=== PATIENT | female | born 1945 | race Caucasian/White ===

== ENCOUNTER → 2024-08-27 | Outpatient (CLI) | payer MEDICARE, SELFPAY ==
[2024-08-27 15:51] LABS: C-Reactive Protein < 0.4 mg/dL (0.0-0.9)
[2024-08-27 17:13] LABS: Sed Rate (ESR) 14 mm/hr (0-30)
[2024-08-27 19:34] LABS: RA Screen Positive (Negative)
[2024-08-27 19:35] LABS: Rheumatoid Factor Titer 1:32
[2024-09-04 06:55] LABS: ANA Screen, IFA NEGATIVE (NEGATIVE); CCP Antibody (IgG)* <16 Units
== END | disposition home or self-care (01) ==
LOC: COPL 14:56
PROVIDERS: PCP Internal Medicine; Referring Provider Nurse Practitioner Primary Care; Visit Provider Nurse Practitioner Primary Care
DX: M19.90 Unspecified osteoarthritis, unspecified site (principal); M25.511 Pain in right shoulder; M25.512 Pain in left shoulder
CPT/HCPCS: 36415; 85652; 86038; 86140; 86200; 86430; 86431

== ENCOUNTER → 2024-09-12 | Outpatient (CLI) | payer MEDICARE, SELFPAY ==
--- NOTE | 2024-09-12 11:00 | XR_ITS ---
Examination: CT chest, without intravenous contrast. Sagittal and coronal 2-D reconstructions. Exam date and time: September 12, 2024 1102 hours INDICATIONS: Coughing shortness of breath beginning several days ago CTDI:vol (mGy) 7.6 DLP: (mGycm) 254 Technique: Multiple 3.0 mm axial sections of the chest to been obtained. Bone and lung density settings are obtained. Sagittal and coronal 2-D reconstructions have been obtained. Low dose protocols were performed. One or more of the following dose reduction techniques were used; automated exposure control, adjustment of the mA and/or KV according to patient size, use of iterative reconstruction technique. Findings: Marked right thyromegaly Thoracic aortic calcification, no aneurysmal dilatation Pulmonary artery segments are not enlarged 3 mm pulmonary nodule right lower lobe No pneumonia or pulmonary edema or pleural disease Minimal apical right pleural scarring Small pericardial effusion No focal liver or splenic lesions Contracted gallbladder Kidneys partially visualized no hydronephrosis No pancreatic mass Moderate hyperexpansion IMPRESSION: COPD Prominent right thyromegaly, recommend dedicated thyroid sonography follow-up 3 mm pulmonary nodule right lower lobe, with this study as baseline recommend 6 month follow-up CT chest without contrast No pneumonia or pulmonary edema or pleural disease
== END | disposition home or self-care (01) ==
LOC: CCTX 10:37
PROVIDERS: PCP Internal Medicine; Referring Provider Internal Medicine; Visit Provider Internal Medicine
DX: J44.9 Chronic obstructive pulmonary disease, unspecified (principal); E01.0 Iodine-deficiency related diffuse (endemic) goiter; R91.1 Solitary pulmonary nodule; F17.200 Nicotine dependence, unspecified, uncomplicated
CPT/HCPCS: 71250

== ENCOUNTER → 2024-10-01 | Outpatient (CLI) | payer MEDICARE, SELFPAY ==
--- NOTE | 2024-10-01 | XR_ITS ---
Examination: Cervical spine 3 views Technique one AP lateral coned AP odontoid cervical spine 3 views Exam date and time: October 01, 2024 1304 hours Comparison December 31, 2023 INDICATIONS: Neck pain radiating to the right hand beginning 2 weeks ago, neck pain one year FINDINGS: Significant osteopenia Satisfactory alignment cervical vertebral bodies No cervical fracture Intact odontoid No significant cervical disc narrowing IMPRESSION: No cervical fracture or significant arthritic change
--- NOTE | 2024-10-01 | XR_ITS ---
Examination: Bilateral shoulders 6 views Technique: Shoulder AP internal rotation, AP external rotation, Y view each shoulder total 6 views Exam date and time :October 01, 2024 1300 hours INDICATIONS: Bilateral shoulder pain one year FINDINGS: Severe osteopenia Bilateral moderate to advanced osteoarthritis glenohumeral joints No shoulder fractures or dislocations No AC joint separations IMPRESSION: Bilateral moderate to advanced osteoarthritis glenohumeral joints
== END | disposition home or self-care (01) ==
PROVIDERS: PCP Obstetrics & Gynecology; Referring Provider Internal Medicine; Visit Provider Internal Medicine
DX: M54.2 Cervicalgia (principal); M19.012 Primary osteoarthritis, left shoulder; M19.011 Primary osteoarthritis, right shoulder
CPT/HCPCS: 72040; 73030

== ENCOUNTER → 2024-12-10 | Outpatient (CLI) | payer MEDICARE, SELFPAY ==
--- NOTE | 2024-12-10 15:30 | XR_ITS ---
Examination: Thyroid sonography complete TECHNIQUE: Grayscale sonographic images thyroid lobes Exam date and time: December 10, 2024 1539 hours INDICATIONS: Iodine deficiency diagnosis, marked right thyromegaly on CT chest September 12, 2024 FINDINGS: Right thyroid 4.1 cm Upper pole nodule 11 x 8 mm Midpole cyst 9 x 7 mm Lower pole nodule 9 x 10 mm Left thyroid 3.0 cm IMPRESSION: Right thyroid nodules as above
== END | disposition home or self-care (01) ==
LOC: CDIM 15:08
PROVIDERS: PCP Internal Medicine; Referring Provider Internal Medicine; Visit Provider Internal Medicine
DX: E04.2 Nontoxic multinodular goiter (principal)
CPT/HCPCS: 76536

== ENCOUNTER → 2025-01-20 | Outpatient (CLI) | payer MEDICARE, SELFPAY ==
--- NOTE | 2025-01-20 14:38 | XR_ITS ---
Examination: Lumbar spine 3 views Technique one AP lateral coned lateral lower lumbar spine 3 views Exam date and time: January 20, 2025 1454 hours FINDINGS: Lower back pain years more severe the last 3 weeks FINDINGS: Transpedicular lumbar fusion L2-S1 with anatomic alignment Moderate disc narrowing above the fusion site L1-L2 No lumbar fracture Thoracolumbar dextroscoliosis 15 degrees IMPRESSION: Transpedicular lumbar fusion L2-S1 with anatomic alignment Moderate degenerative disc disease L1-L2
--- NOTE | 2025-01-20 14:38 | XR_ITS ---
Examination:Left hip AP, lateral, AP pelvis 3 views Technique: Hip AP lateral, AP pelvis, 3 views Exam date and time:January 20, 2025 1545 hours INDICATIONS: Left hip pain beginning several years ago worse the last 3 weeks FINDINGS: Bilateral hip hemiarthroplasties Satisfactory alignment No loosening of the prosthetic components Bones of the pelvis intact IMPRESSION: Bilateral hip hemiarthroplasties with satisfactory alignment.
== END | disposition home or self-care (01) ==
LOC: CDIM 13:51
PROVIDERS: PCP Internal Medicine
DX: M25.552 Pain in left hip (principal); M51.360 Other intervertebral disc degeneration, lumbar region with discogenic back pain only
CPT/HCPCS: 72100; 73502

== ENCOUNTER 2025-02-28 18:42 | Emergency (ER) | payer MEDICARE, SELFPAY ==
[2025-02-28 19:11] VITALS: BP 140/77; PULSE 106; RESP 20; TEMP 36.9; O2SAT 96; BMI 22.6
--- NOTE | 2025-02-28 19:29 | XR_ITS ---
Examination: CT lumbar spine, without contrast. 2-D sagittal reconstructions. 2-D coronal reconstructions. 3-D reconstructions. Date and time of exam:February 28, 2025 1949 hours INDICATIONS: Patient fell today with injury to lower back, lower back pain CTDI: vol (mGy):20 DLP: (mGycm):552 Technique: Multiple 1.25 mm axial sections of the lumbar spine without intravenous contrast have been obtained. 2-D sagittal and coronal reconstructions have been obtained. 3-D reconstructions have been obtained. Low dose protocols were performed. One or more of the following dose reduction techniques were used; automated exposure control, adjustment of the mA and/or KV according to patient size, use of iterative reconstruction technique. Findings: Severe osteopenia Extensive transpedicular lumbar fusion extending from L2 to the sacrum with satisfactory alignment No acute lumbar vertebral body fracture The transpedicular screws generate artifacts which degrade the images Laminectomies at the lower 3 lumbar levels IMPRESSION: No acute lumbar fracture
--- NOTE | 2025-02-28 19:29 | XR_ITS ---
Examination: Knee, left , 3 views Technique: Knee AP, lateral, oblique 3 views Date and time of exam: February 28, 2025 2121 hours INDICATIONS: Patient fell 3 weeks ago with injury to the knee, knee pain. FINDINGS: No fracture or dislocation. No foreign body IMPRESSION: No fracture or dislocation
--- NOTE | 2025-02-28 19:29 | XR_ITS ---
Examination: Bilateral hips, AP pelvis, 5 views Technique: AP, lateral views both hips, AP pelvis, 5 views Exam date and time: February hours INDICATIONS: Patient fell 3 weeks ago with injury to both hips, bilateral rib pain. FINDINGS: Bilateral hip hemiarthroplasties. Satisfactory alignment No fractures. No loosening of the prosthetic components Bones of the pelvis and back IMPRESSION: No acute hip or pelvic fracture
--- NOTE | 2025-02-28 19:31 | XR_ITS ---
EXAMINATION: Ankle, left 3 views . Technique: Ankle AP, oblique, lateral 3 views Date and time of exam: February 28, 2025 2131 hours INDICATIONS: Patient fell 3 weeks ago with injury to the ankle, ankle pain. FINDINGS: Moderate osteopenia. No fracture or dislocation IMPRESSION: No fracture or dislocation
--- NOTE | 2025-02-28 19:31 | XR_ITS ---
Examination: Tibia-Fibula, left , 2 views Technique: Tibia-fibula AP lateral 2 views Date and time of exam: February 28, 2025, 1935 hours INDICATIONS: Patient fell 3 weeks ago with injury to lower leg, lower leg pain FINDINGS: No fracture or dislocation IMPRESSION: No fracture or dislocation
--- NOTE | 2025-02-28 19:31 | XR_ITS ---
Examination: Foot, left, 3 views Technique: AP, oblique, lateral views foot, 3 views Date and time of exam: February 28, 2025 2121 hours INDICATIONS: Patient fell 3 weeks ago with injury to the foot, foot pain. FINDINGS: Prominent osteopenia No acute fracture No dislocation IMPRESSION: No acute fracture
--- NOTE | 2025-02-28 19:34 | EDNOTE_ITS ---
Lower Extremity Injury RME/HPI General Chief Complaint: Hip Injury/Pain Stated Complaint: LEFT HIP PAIN Time Seen by Provider: 02/28/25 19:10 Arrival date/time: 02/28/25 18:42 This is a 79-year-old female that comes into the emergency room with complaints of left hip pain. Patient states that the couple weeks ago she had her sheets rolled in her legs and fell to the ground. Patient states she fell onto her left hip. Patient states since the fall she has been hurting to that left side left leg left knee left lower leg and ankle. Patient also complains of pain to her left buttock area. Patient reports that the pain goes down her leg. Patient reports back surgeries and a hip replacement in the past. Related Data Previous Rx's ?Medication ?Instructions ?Recorded amoxicillin 875 mg-potassium 1 tab PO BID #14 tabs 08/17 clavulanate 125 mg tablet hydrocodone 5 mg-acetaminophen 325 1 tab PO Q6H PRN pa in #20 tabs 02/10/24 mg tablet hydrocodone 5 mg-acetaminophen 325 1 tab PO Q6H PRN pa in #20 tabs 02/10/24 mg tablet acetaminophen 300 mg-codeine 30 mg 2 tab PO Q8H PRN pa in #20 tabs 03/11/25 tablet lidocaine 5 % topical patch 2 patch topical QDAY PRN p ain #30 03/11/25 (Lidoderm) ea Allergies Allergy/AdvReac Type Severity Reaction Status Date / Time No Known Allergies Allergy Verified 03/11/25 14:12 Review of Systems Review of Systems Systems Reviewed: All systems reviewed, normal except as documented Past Medical History Past Medical History CARDIAC: Negative Congestive Heart Failure RESPIRATORY: Negative Chronic Obstructive Pulmonary Disease (COPD) GENITOURINARY: Negative Renal Disease ENDOCRINE: Negative Diabetes Mellitus Type 1 or Diabetes Mellitus Type 2 Social History SMOKING STATUS: Current every day smoker SUBSTANCE USE: does not use ED Exam Narrative Physical exam: VITAL SIGNS: Reviewed. GENERAL APPEARANCE: Alert and interactive, follows commands, no acute distress HEAD AND FACE: Non-traumatic. ENT: PERRL, conjuctiva pink and clear, eyelid no trauma, Mucous membrane moist. NECK: Supple, nontender, no nuchal rigidity. CHEST: No tenderness, no crepitus, no paradoxical movement, no retractions. LUNGS: breathing even and unlabored HEART: Regular rate, cap refill less than 2 seconds ABDOMEN: Soft, nondistended, no guarding, nontender NEUROLOGICAL: Gross motor function intact sensory function intact, Appropriate for age. MUSCULOSKELETAL: low back nontender, full range of motion. EXTREMITIES: No redness no swelling no skin breakdown on bilateral foot and leg. Distal neurovascular status intact bilateral foot SKIN: Color pink, dry, no rashs. Course Quality Measures none Orders Category Date Time Status CT lumbar spine wo con Stat Exams 02/28/25 19:29 Completed XR ankle comp LT min 3V Stat Exams 02/28/25 19:31 Completed XR femur LT 2V Stat Exams 02/28/25 20:34 Completed XR foot comp LT min 3V Stat Exams 02/28/25 19:31 Completed XR hip BI w pelvis 3-4V Stat Exams 02/28/25 19:29 Completed XR knee LT 3V Stat Exams 02/28/25 19:29 Completed XR tibia fibula LT 2V Stat Exams 02/28/25 19:31 Completed Acetaminophen Tab [Tylenol ES Tab] Med 02/28/25 21:42 Discontinued 1,000 mg PO X1 ONE Ibuprofen Tab [Motrin Tab] Med 02/28/25 21:42 Discontinued 800 mg PO X1 ONE Vital Signs Vital signs: Vital Signs Temperature 98.4 F 02/28/25 19:11 Pulse Rate 106 H 02/28/25 19:11 Respiratory Rate 20 02/28/25 19:11 Blood Pressure 140/77 H 02/28/25 19:11 Pulse Oximetry (%) 96 02/28/25 19:11 Oxygen Delivery Method Room Air 02/28/25 19:11 Extremity Injury, Lower MDM Narrative MDM Narrative:: Hip xray: FINDINGS: Bilateral hip hemiarthroplasties. Satisfactory alignment No fractures. No loosening of the prosthetic components Bones of the pelvis and back IMPRESSION: No acute hip or pelvic fracture knee: FINDINGS: No fracture or dislocation. No foreign body IMPRESSION: No fracture or dislocation lumbar ct scan: Findings: Severe osteopenia Extensive transpedicular lumbar fusion extending from L2 to the sacrum with satisfactory alignment No acute lumbar vertebral body fracture The transpedicular screws generate artifacts which degrade the images Laminectomies at the lower 3 lumbar levels IMPRESSION: No acute lumbar fracture ankle: FINDINGS: Moderate osteopenia. No fracture or dislocation IMPRESSION: No fracture or dislocation foot FINDINGS: Prominent osteopenia No acute fracture No dislocation IMPRESSION: No acute fracture tib/fib: FINDINGS: No fracture or dislocation IMPRESSION: No fracture or dislocation Patient given tylenol and ibuprofen for pain. Pt feels better. Patient told to follow up with primary provider in 1-2 days Today patient had xray and Ct scan. There was no acute fracture seen. Exam appeared unremarkable. I explained to patient at length that if there was continued pain to this area or worsened to come back to ED or see primary provider for more xrays or further testing such as CT scan or MRI. X rays are not perfect and sometimes serial films needed. Patient verbalized understanding. Patient states they will follow up with primary provider in 1-2 days or come back to ED if symptoms change or worsen. Patient data External records reviewed:: [facility] previous records Clinical information provided by:: patient Social determinants that could affect healthcare access:: none Patient has the following chronic illnesses:: See HPI How is presenting disease/condition affected by chronic disease/condition?: uneffected by Evaluation data The following diagnostics were reviewed and interpreted by me:: radiology exam(s) Lab and/or radiology exams considered but not ordered:: Same none Interpretation Summary: See note Medications / Prescriptions Medications or Prescriptions considered but not ordered:: None Medication administrations:: Medication Administration History Discontinued Medications Acetaminophen (Acetaminophen 500 Mg Tablet) 1,000 mg PO X1 ONE Stop: 02/28/25 21:43 Last Admin: 02/28/25 21:51 Dose: 1,000 mg Documented By: DT Ibuprofen (Ibuprofen Tab 400 Mg Tablet) 800 mg PO X1 ONE Stop: 02/28/25 21:43 Last Admin: 02/28/25 21:51 Dose: 800 mg Documented By: DT See [facility] [place] Consultations Consultation(s) initiated? (list below): No Diagnosis Extremity Injury, Lower Differential Diagnosis: other (Knee fracture knee contusion, back fracture chronic back pain) Most likely diagnosis given after review of the tests above:: Musculoskeletal pain Admission Indicated Admission indicated?: not indicated Admission Request Was there a request for admission?: No Disposition Plan Disposition Plan: Discharge Discharge Attestation Discharge Attestation: The patient and all family members were given an opportunity to ask questions and understood the discharge instructions. Discharge instructions specifically effects, indications for sooner follow up or return to the emergency department, and the expected course of current diagnosis. Patient condition: Stable Discharge Plan Plan Patient Disposition: HOME (Self Care) Patient condition on transfer: Stable Prescriptions/Referrals Prescriptions/Med Rec: No Action amoxicillin-pot clavulanate 875-125 mg tablet 1 tab PO BID Qty: 14 0RF hydrocodone-acetaminophen 5-325 mg tablet 1 tab PO Q6H MDD 4 PRN (Reason: pain) Qty: 20 0RF hydrocodone-acetaminophen 5-325 mg tablet 1 tab PO Q6H MDD 4 PRN (Reason: pain) Qty: 20 0RF acetaminophen-codeine 300-30 mg tablet 2 tab PO Q8H MDD 6 PRN (Reason: pain) Qty: 20 0RF lidocaine [Lidoderm] 5 % adhesive patch,medicated 2 patch topical QDAY PRN (Reason: pain) Qty: 30 0RF Rx Instructions: leave on most painful area for up to 12 hrs Referrals: Gonzales New MD [Primary Care Provider] - In 1 week Problem List Clinical Impression: Fall, Acute leg pain, Back pain Patient/Caregiver Discharge Instructions Discharge Activity: activity as tolerated Education Materials: ED Back Pain (Acute or Chronic), ED RICE Additional Instructions: radiology studies show: Hip xray: FINDINGS: Bilateral hip hemiarthroplasties. Satisfactory alignment No fractures. No loosening of the prosthetic components Bones of the pelvis and back IMPRESSION: No acute hip or pelvic fracture knee: FINDINGS: No fracture or dislocation. No foreign body IMPRESSION: No fracture or dislocation lumbar ct scan: Findings: Severe osteopenia Extensive transpedicular lumbar fusion extending from L2 to the sacrum with satisfactory alignment No acute lumbar vertebral body fracture The transpedicular screws generate artifacts which degrade the images Laminectomies at the lower 3 lumbar levels IMPRESSION: No acute lumbar fracture ankle: FINDINGS: Moderate osteopenia. No fracture or dislocation IMPRESSION: No fracture or dislocation foot FINDINGS: Prominent osteopenia No acute fracture No dislocation IMPRESSION: No acute fracture tib/fib: FINDINGS: No fracture or dislocation IMPRESSION: No fracture or dislocation Follow up with primary provider in 1-2 days. Come back to ED if symptoms change or worsen Print Language: Yemeni Stand Alone Forms: Alejandra Award Info., Patient Portal Info Letter PA/ACCOUNTING SPECIALIST Supervising Physician PA/ACCOUNTING SPECIALIST Supervising Physician: da
--- NOTE | 2025-02-28 20:34 | XR_ITS ---
Examination: Left femur 2 views TECHNIQUE: AP lateral left femur 2 views Date and time: February 28, 2025 10:00 PM INDICATIONS: Patient fell 3 weeks ago with injury to the femur, left femur pain FINDINGS: Incomplete study Visualize shaft appears intact IMPRESSION: Visualized femoral shaft appears intact
[2025-02-28 21:08] VITALS: BP 126/68; PULSE 80; RESP 18; TEMP 36.8; O2SAT 95
[2025-02-28 21:51] VITALS: TEMP 37
[2025-02-28] MEDS: IBUPROFEN TAB 400 MG TABLET 800 MG PO (21:51)
[2025-02-28] MEDS: ACETAMINOPHEN 500 MG TABLET 1000 MG PO (21:51)
== END 2025-02-28 21:57 | disposition home or self-care (01) ==
PROVIDERS: Emergency Provider Emergency Medicine; PCP Internal Medicine
DX: S99.912A Unspecified injury of left ankle, initial encounter (principal); S39.92XA Unspecified injury of lower back, initial encounter; S99.922A Unspecified injury of left foot, initial encounter; W19.XXXA Unspecified fall, initial encounter; S79.912A Unspecified injury of left hip, initial encounter; S79.911A Unspecified injury of right hip, initial encounter; S89.92XA Unspecified injury of left lower leg, initial encounter
CPT/HCPCS: 72131; 73522; 73552; 73562; 73590; 73610; 73630; 99284; A9270

== ENCOUNTER 2025-03-11 14:09 | Emergency (ER) | payer MEDICARE, SELFPAY ==
[2025-03-11 14:10] VITALS: BMI 22.9
--- NOTE | 2025-03-11 14:18 | XR_ITS ---
Examination: CT abdomen and pelvis without contrast. Coronal 3-D reconstructions. Sagittal 2-D reconstructions. Date and time of exam: March 11, 2025 1546 hours INDICATIONS: Left-sided flank pain and nausea today CTDI: vol (mGy): 9.3 DLP: (mGycm): 455 Technique: Axial images of the abdomen have been obtained, 3 mm slice thickness Intravenous contrast material has not been administered. Low dose protocols were performed. One or more of the following dose reduction techniques were used; automated exposure control, adjustment of the mA and/or KV according to patient size, use of iterative reconstruction technique. Findings: No focal liver or splenic lesions Gallstones No pancreatic or adrenal mass No renal or ureteral calculi, no hydronephrosis Aorta normal size No pericecal inflammatory change Abundant stool in the colon Urinary bladder intact Detail in the pelvis is reduced secondary to the hemiarthroplasties right and left hip IMPRESSION: No renal or ureteral calculi, no hydronephrosis No bladder mass or bladder calculi
--- NOTE | 2025-03-11 14:18 | XR_ITS ---
Examination: CT lumbar spine, without contrast. 2-D sagittal reconstructions. 2-D coronal reconstructions. 3-D reconstructions. Date and time of exam:March 11, 2025 1546 hours INDICATIONS: Low back pain radiating down the left leg this week COMPARISON: February 28, 2025 CTDI: vol (mGy):20.6 DLP: (mGycm):530 Technique: Multiple 1.25 mm axial sections of the lumbar spine without intravenous contrast have been obtained. 2-D sagittal and coronal reconstructions have been obtained. 3-D reconstructions have been obtained. Low dose protocols were performed. One or more of the following dose reduction techniques were used; automated exposure control, adjustment of the mA and/or KV according to patient size, use of iterative reconstruction technique. Findings: Severe osteopenia Transpedicular lumbar fusion L2-S1 Satisfactory alignment No acute lumbar fracture Laminectomy lower 3 lumbar levels Axial images demonstrate no focal lumbar disc protrusion IMPRESSION: No acute lumbar fracture. As clinically warranted, ejected CT myelography follow up would best assess for acquired soft tissue spinal stenosis
[2025-03-11 14:20] VITALS: BP 125/78; PULSE 113; RESP 18; TEMP 36.9; O2SAT 97
[2025-03-11 14:39] LABS: Collection Type, Urine Clean Catch
[2025-03-11 14:40] LABS: Basophils # (Auto) 0.1 Thou/mm3 (0.0-0.2); Basophils % (Auto) 1 % (0-2.5); Eosinophils # (Auto) 0.2 Thou/mm3 (0.0-0.5); Eosinophils % (Auto) 3 % (0-10); Hematocrit 34.5 % (36.0-46.0); Hemoglobin 11.6 g/dL (12.0-16.0); Immature Granulocytes % (Auto) 0 % (0-0); Immature Granulocytes Auto 0.01 Thou/mm3 (0.00-0.00); Lymphocytes # (Auto) 1.9 Thou/mm3 (1.0-4.8); Lymphocytes % (Auto) 29 % (10-50); Mean Corpuscular HGB Conc 33.6 g/dl (31.0-37.0); Mean Corpuscular Hemoglobin 29.5 pg (25.0-35.0); Mean Corpuscular Volume 88 fL (80-100); Monocytes # (Auto) 0.5 Thou/mm3 (0.0-0.8); Monocytes % (Auto) 7 % (0-12); Neutrophils % (Auto) 60 % (37-80); Nucleated Red Blood Cell % 0 /100 WBC (0); Platelet Count 216 Thou/mm3 (140-440); RDW Standard Deviation 46.5 fL (36.4-46.3); Red Blood Count 3.93 Miln/mm3 (4.00-5.20); White Blood Count 6.6 Thou/mm3 (3.6-11.0)
[2025-03-11 14:48] LABS: Bilirubin,Urine Negative (Negative); Blood,Urine Negative (Negative); Clarity,Urine Clear (Clear/Hazy); Color,Urine Colorless (Lt Yel-Yel); Culture Indicated,Urine Not Indicated; Glucose, Urine Negative (Negative); Ketones,Urine Negative (Negative); Leukocyte Esterase,Urine Positive (Negative); Nitrite,Urine Negative (Negative); PH,Urine 5.5 (5.0-7.0); Protein,Urine Negative (Neg - Trace); RBC,Urine 1 /hpf (0-3); Specific Gravity,Urine 1.009 (1.001-1.035); Squamous Epithelial Cell,Urine < 1 /hpf (0-5); Urobilinogen,Urine Negative mg/dL (0.0-1.0); WBC,Urine 2 /hpf (0-5)
[2025-03-11 15:09] LABS: Alanine Aminotransferase 12 U/L (10-49); Albumin, Serum 4.3 gm/dL (3.4-4.8); Albumin/Globulin Ratio 2.5 (1.2-2.2); Alkaline Phosphatase 53 U/L (46-116); Anion Gap 8 (7-16); Aspartate Amino Transferase 16 U/L (0-34); BUN/Creatinine Ratio 24 Ratio (12-20); Bilirubin,Direct < 0.1 mg/dL (0.0-0.3); Bilirubin,Total 0.3 mg/dL (0.3-1.2); Blood Urea Nitrogen 19 mg/dL (9-23); Carbon Dioxide 23.5 mMol/L (20.0-31.0); Chloride 108 mMol/L (98-107); Creatinine (Component) 0.8 mg/dL (0.6-1.3); Estimated Creatinine Clearance 51.3 mL/min (>60); Globulin 1.7 gm/dL (2.3-3.5); Glucose 125 mg/dL (74-106); Magnesium 2.1 mg/dL (1.6-2.6); Osmolality,Calculated 280 (275-295); Potassium 3.9 mMol/L (3.4-5.1); Sodium 139 mMol/L (136-145); eGFR > 60 See Note
--- NOTE | 2025-03-11 15:19 | EDNOTE_ITS ---
ED Abdominal Pain RME/HPI General Chief Complaint: Abdominal Pain Stated complaint: LEFT LOWER ABD PAIN /BULGE NOTED X2D Time seen by provider: 03/11/25 14:32 Arrival date/time: 03/11/25 14:09 RME / HPI RME / HPI narrative: This section includes all my notes and documentations, including HPI, PE, and ED course. Gordon Pagan MD HPI: 79 year old female here with a few days of pain in the left flank area. Has difficulty localizing the pain further. No nausea or vomiting. No fever. No urinary symptoms. No other complaints. ROS: All negative except as documented in HPI. Physical Exam: General:? Alert and oriented.? No acute distress when remaining still. Eyes:? Conjunctivae and lids clear.?? ENT:? No nasal congestion.? Neck:? Supple.?? Heart:? RRR.? Lungs:? No respiratory distress.? Good air movement.? No rhonchi, wheezing, rales.?? Abdomen:? Soft and nontender.? Normal bowel sounds.? No distension.? No rebound or guarding.?? Back:? No CVA tenderness.?? Skin:? Warm and dry.?? Neuro:? Alert and oriented X 3. I reviewed all diagnostic test results: My review of the lumbar spine CT report is: No acute lumbar fracture. My review of the CT abdomen/pelvis report is NAD. Blood tests and urine tests?are unremarkable. At this point, diagnoses include: Musculoskeletal pain Recommended supportive care. Based on my best medical judgment, made decision no further evaluation or treatment indicated at this time.? Patient understands and agrees to the discharge instructions customized and printed, see below. Discharge Instructions from Dr. Pagan printed for you: 1. After extensive evaluation, there is no internal cause of your pain. 2. Your pain is musculoskeletal, meaning the pain is originating from the outside and not internally. 3. Activity as tolerated. 4. Apply ice or heat if helpful. 5. Ibuprofen 200 mg every 6-8 hours today and tomorrow to decrease inflammation then as needed. 6. Lidocaine patches and Tylenol with codeine as needed. 7. See a private doctor on 03/13/2025 for recheck and further care, including second opinion. Ask to review all test results and official radiology reports, to make sure you receive all necessary follow-ups and monitoring. 8. Seek immediate medical care with worsening or with any concerns. Gordon Pagan MD Related Data Previous Rx's ?Medication ?Instructions ?Recorded amoxicillin 875 mg-potassium 1 tab PO BID #14 tabs 08/17 clavulanate 125 mg tablet hydrocodone 5 mg-acetaminophen 325 1 tab PO Q6H PRN pa in #20 tabs 02/10/24 mg tablet hydrocodone 5 mg-acetaminophen 325 1 tab PO Q6H PRN pa in #20 tabs 02/10/24 mg tablet acetaminophen 300 mg-codeine 30 mg 2 tab PO Q8H PRN pa in #20 tabs 03/11/25 tablet lidocaine 5 % topical patch 2 patch topical QDAY PRN p ain #30 03/11/25 (Lidoderm) ea Allergies Allergy/AdvReac Type Severity Reaction Status Date / Time No Known Allergies Allergy Verified 03/11/25 14:12 Review of Systems Review of Systems Systems Reviewed: All systems reviewed, normal except as documented Past Medical History Past Medical History CARDIAC: Negative Congestive Heart Failure RESPIRATORY: Negative Chronic Obstructive Pulmonary Disease (COPD) GENITOURINARY: Negative Renal Disease ENDOCRINE: Negative Diabetes Mellitus Type 1 or Diabetes Mellitus Type 2 Social History SMOKING STATUS: Current every day smoker SUBSTANCE USE: does not use ED Exam Narrative Physical exam: As noted in HPI Course Quality Measures none Orders Category Date Time Status CT abdomen pelvis wo con Stat Exams 03/11/25 14:[address] lumbar spine wo con Stat Exams 03/11/25 14:18 Completed Bilirubin,Direct Stat Lab 03/11/25 14:35 Completed CBC Stat Lab 03/11/25 14:35 Completed CMP [Comprehensive Metabolic Panel] Stat Lab 03/11/25 14:35 Completed Magnesium Stat Lab 03/11/25 14:35 Completed UA, C/S IF [Urinalysis, C/S if Indicated] Stat Lab 03/11/25 14:36 Completed Vital Signs Vital signs: Vital Signs Temperature 98.5 F 03/11/25 14:20 Pulse Rate 113 H 03/11/25 14:20 Respiratory Rate 18 03/11/25 14:20 Blood Pressure 125/78 03/11/25 14:20 Pulse Oximetry (%) 97 03/11/25 14:20 Oxygen Delivery Method Room Air 03/11/25 14:20 Abdominal Pain MDM Patient data External records reviewed:: [facility] previous records (I reviewed ED visit 02/28/2025 ) Clinical information provided by:: patient Social determinants that could affect healthcare access:: none Patient has the following chronic illnesses:: none How is presenting disease/condition affected by chronic disease/condition?: no chronic disease Evaluation data The following diagnostics were reviewed and interpreted by me:: lab results and radiology exam(s) Lab and/or radiology exams considered but not ordered:: None Interpretation Summary: I reviewed all diagnostic test results: My review of the lumbar spine CT report is: No acute lumbar fracture. My review of the CT abdomen/pelvis report is NAD. Blood tests and urine tests?are unremarkable. Medications / Prescriptions Medications or Prescriptions considered but not ordered:: None Medication administrations:: None Consultations Consultation(s) initiated? (list below): No Diagnosis Differential diagnosis abdominal pain: abdominal pain, acute appendicitis, calculus of kidney, constipation, diverticulitis, endometriosis, gastroenteritis, small bowel obstruction and other (musculoskeletal pain ) Most likely diagnosis given after review of the tests above:: Musculoskeletal pain Admission Indicated Admission indicated?: not indicated Explain why admission is indicated or not indicated:: With no serious condition, there was no indication for admission. Admission Request Was there a request for admission?: No Disposition Plan Disposition Plan: Discharge Discharge Attestation Discharge Attestation: The patient and all family members were given an opportunity to ask questions and understood the discharge instructions. Discharge instructions specifically effects, indications for sooner follow up or return to the emergency department, and the expected course of current diagnosis. Patient condition: Stable Discharge Plan Plan Patient Disposition: HOME (Self Care) Prescriptions/Referrals Prescriptions/Med Rec: New acetaminophen-codeine 300-30 mg tablet 2 tab PO Q8H MDD 6 PRN (Reason: pain) Qty: 20 0RF lidocaine [Lidoderm] 5 % adhesive patch,medicated 2 patch topical QDAY PRN (Reason: pain) Qty: 30 0RF Rx Instructions: leave on most painful area for up to 12 hrs No Action amoxicillin-pot clavulanate 875-125 mg tablet 1 tab PO BID Qty: 14 0RF hydrocodone-acetaminophen 5-325 mg tablet 1 tab PO Q6H MDD 4 PRN (Reason: pain) Qty: 20 0RF hydrocodone-acetaminophen 5-325 mg tablet 1 tab PO Q6H MDD 4 PRN (Reason: pain) Qty: 20 0RF Referrals: Gonzales New MD [Primary Care Provider] - In 1 week Problem List Clinical Impression: Musculoskeletal pain Patient/Caregiver Discharge Instructions Discharge Activity: activity as tolerated Education Materials: ED Back Pain (Acute or Chronic) Additional Instructions: Discharge Instructions from Dr. Pagan printed for you: 1. After extensive evaluation, there is no internal cause of your pain. 2. Your pain is musculoskeletal, meaning the pain is originating from the outside and not internally. 3. Activity as tolerated. 4. Apply ice or heat if helpful. 5. Ibuprofen 200 mg every 6-8 hours today and tomorrow to decrease inflammation then as needed. 6. Lidocaine patches and Tylenol with codeine as needed. 7. See a private doctor on 03/13/2025 for recheck and further care, including second opinion. Ask to review all test results and official radiology reports, to make sure you receive all necessary follow-ups and monitoring. 8. Seek immediate medical care with worsening or with any concerns. Print Language: German Stand Alone Forms: Alejandra Award Info., Patient Portal Info Letter
--- NOTE | 2025-03-11 17:08 | PRELIM_ITS ---
CT scan of the abdomen and pelvis without intravenous contrast (axial sections with sagittal and coronal reformats) March 11, 2025 1546 hours Clinical History: L flank pain Comparison:No prior study is available for comparison. Findings: The lung bases are clear. There is a calcified gallstone.The liver, pancreas, spleen, kidneys and adrenals are unremarkable on this noncontrast study. No evidence of bowel obstruction. Abundant amount of fecal material is present in the colon. The appendix is not definitively visualized; however, there is no evidence of inflammatory process in the right lower quadrant to suggest appendicitis.There is no mesenteric or retroperitoneal adenopathy. The urinary bladder is unremarkable. There is no free fluid or free air. Bilateral hip implants are present causing streak artifact and limiting evaluation of the pelvic structures. Spinal fusion is seen. There is severe osteopenia. Impression: No renal/ureteric calculi or ureteric obstruction. Cholelithiasis. Marked constipation. Other findings as described above. Report Electronically Signed By: Juni Jackson 03/11/2025 5:07:39 PM [EST]
--- NOTE | 2025-03-11 17:27 | PRELIM_ITS ---
CT scan of the lumbar spine without intravenous contrast (axial sections with sagittal and coronal reformats) March 11, 2025 1546 hours Clinical History: LBP radiating into left leg Comparison:No prior study is available for comparison. Findings: Limitation:- The evaluation is limited by streak artifact. Alignment:- There is spinal fusion at L2 to S1 levels with fusion rods and pedicle screws. There is L3,L4 and L5 laminectomy and disc spacer implant at L2- L3. Vertebral Bodies:- There is diffuse osteopenia. There is chronic fracture of L3 vertebral body. Intervertebral Discs:- Degenerative changes are noted in the form of multilevel marginal osteophytes, decreased disc spaces and facet arthropathy. Soft Tissues:- There are paravertebral soft tissue swelling and post operative changes. Additional Findings:- None. Impression: The evaluation is limited by streak artifact. No evidence of acute fracture, subluxation or significant soft tissue injury. Spinal fusion at L2 to S1 levels with postoperative changes. Degenerative changes are identified in the spine. Diffuse osteopenia. Other findings as described above. Report Electronically Signed By: Juni Jackson 03/11/2025 5:26:35 PM [EST]
== END 2025-03-11 18:23 | disposition home or self-care (01) ==
PROVIDERS: Emergency Provider Emergency Medicine; PCP Internal Medicine
DX: M79.18 Myalgia, other site (principal); R10.32 Left lower quadrant pain; M54.50 Low back pain, unspecified
CPT/HCPCS: 36415; 72131; 74176; 80053; 81001; 82248; 83735; 85025; 99284

== ENCOUNTER 2025-07-04 13:30 | Emergency (ER) | payer MEDICARE, SELFPAY ==
[2025-07-04 14:04] VITALS: BP 148/83; PULSE 93; RESP 18; TEMP 37.1; O2SAT 97
--- NOTE | 2025-07-04 14:21 | PD.EDABDPN ---
ED Abdominal Pain RME/HPI General Chief Complaint: Abdominal Pain Stated complaint: Left lower abdominal pain X 1 week Time seen by provider: 07/04/25 14:13 Arrival date/time: 07/04/25 13:30 Limitations: no limitations RME / HPI RME / HPI narrative: 80-year-old female with 4 months of left lower quadrant pain. States however worse over the last 1 week. States was here a few months ago and was scanned and was told nothing. However she has pain with bending and the soreness to the left lower quadrant. No diarrhea no vomiting no rectal bleeding. History of total hysterectomy. Does not know when her last colonoscopy was. Related Data Previous Rx's ?Medication ?Instructions ?Recorded amoxicillin 875 mg-potassium 1 tab PO BID #14 tabs 02/02/24 clavulanate 125 mg tablet hydrocodone 5 mg-acetaminophen 325 1 tab PO Q6H PRN pain #20 tabs 02/10/24 mg tablet hydrocodone 5 mg-acetaminophen 325 1 tab PO Q6H PRN pain #20 tabs 02/10/24 mg tablet acetaminophen 300 mg-codeine 30 mg 2 tab PO Q8H PRN pain #20 tabs 03/11/25 tablet lidocaine 5 % topical patch 2 patch topical QDAY PRN pain #30 03/11/25 (Lidoderm) ea Allergies Allergy/AdvReac Type Severity Reaction Status Date / Time No Known Allergies Allergy Verified 07/04/25 13:33 Review of Systems Review of Systems Systems Reviewed: All systems reviewed, normal except as documented Constitutional Constitutional: Denies fever(s) Gastrointestinal Gastrointestinal: Reports as per HPI Genitourinary Genitourinary: Denies dysuria ED Exam General Limitations: Present no limitations General appearance: Present alert and in no apparent distress Head Head exam: Present atraumatic Eye Eye exam: Present normal appearance, PERRL and EOMI ENT ENT exam: Present normal exam, normal oropharynx and mucous membranes moist Neck Neck exam: Present normal inspection, full ROM and trachea midline Chest Chest inspection: Present normal inspection and symmetric chest wall rise Respiratory Respiratory exam: Present normal lung sounds bilaterally Cardiovascular Cardiovascular exam: Present regular rate, normal rhythm and normal heart sounds Abdominal Exam Abdominal exam: Present tenderness (LLQ pain ) and normal bowel sounds Extremities Exam Extremities exam: Present normal inspection and full ROM Back Exam Back exam: Present normal inspection and full ROM Psychiatric Psychiatric exam: Present normal affect and normal mood Skin Skin exam: Present warm, dry, intact and normal color Course Quality Measures none Orders Category Date Time Status CT Screening NOW Care 07/04/25 14:24 Completed IV [Insert IV] NOW Care 07/04/25 14:[address] abdomen pelvis w con Stat Exams 07/04/25 14:24 Completed US pelvic complete Stat Exams 07/04/25 17:48 Completed XR chest 2V Stat Exams 07/04/25 14:22 Completed CBC [CBC] Stat Lab 07/04/25 14:32 Completed CMP [Comprehensive Metabolic Panel] Stat Lab 07/04/25 14:32 Completed UA, C/S IF [Urinalysis, C/S if Indicated] Stat Lab 07/04/25 15:18 Completed HYDROcodone*/APAP 5/325 [Leonard 5/325] Med 07/04/25 14:24 Discontinued 1 tab PO X1 ONE Ketorolac Inj [Toradol Inj] Med 07/04/25 14:24 Discontinued 30 mg IM X1 ONE Vital Signs Vital signs: Vital Signs Temperature 98.7 F 07/04/25 14:04 Pulse Rate 93 07/04/25 14:04 Respiratory Rate 18 07/04/25 14:04 Blood Pressure 148/83 H 07/04/25 14:04 Pulse Oximetry (%) 97 07/04/25 14:04 Oxygen Delivery Method Room Air 07/04/25 14:04 Abdominal Pain MDM MDM Narrative MDM Narrative:: 80-year-old female with abdominal pain worked up for oncological versus surgical abdomen CT did not show any surgical findings pelvic ultrasound was suggested by radiologist but also did not reveal any surgical or oncological issue. f/u with pcp return to ER if symptoms worsen Patient data External records reviewed:: [facility] previous records Clinical information provided by:: patient and family Social determinants that could affect healthcare access:: other (specify) (Elderly patient who cannot care for herself) Patient has the following chronic illnesses:: Hypertension How is presenting disease/condition affected by chronic disease/condition?: uneffected by Evaluation data The following diagnostics were reviewed and interpreted by me:: lab results and radiology exam(s) Lab and/or radiology exams considered but not ordered:: MRI of abdomen was considered however unlikely to change the course of treatment today given normal imaging Interpretation Summary: Normal CBC normal CMP normal CBC this is not chronic findings ultrasound also did not show surgical Normal UA Medications / Prescriptions Medications or Prescriptions considered but not ordered:: Narcotics considered however given age opted against Medication administrations:: Medication Administration History Discontinued Medications Hydrocodone Bitart/Acetaminophen (Hydrocodone/Apap 5/325 Tablet) 1 tab PO X1 ONE Stop: 07/04/25 14:25 Last Admin: 07/04/25 15:46 Dose: 1 tab Documented By: ANN MARIE Ketorolac Tromethamine (Ketorolac Inj 30 Mg/Ml Vial) 30 mg IM X1 ONE Stop: 07/04/25 14:25 Last Admin: 07/04/25 15:47 Dose: 30 mg Documented By: BD See above Consultations Consultation(s) initiated? (list below): No Diagnosis Differential diagnosis abdominal pain: abdominal pain, acute appendicitis, calculus of kidney, constipation, diverticulitis, pancreatitis and small bowel obstruction Most likely diagnosis given after review of the tests above:: Abdominal pain unknown etiology Admission Indicated Admission indicated?: not indicated Admission Request Was there a request for admission?: No Disposition Plan Disposition Plan: Discharge Discharge Attestation Discharge Attestation: The patient and all family members were given an opportunity to ask questions and understood the discharge instructions. Discharge instructions specifically effects, indications for sooner follow up or return to the emergency department, and the expected course of current diagnosis. Patient condition: Stable Discharge Plan Plan Patient Disposition: HOME (Self Care) Discharge Disposition comment: f/u with pcp in 2-3days Prescriptions/Referrals Prescriptions/Med Rec: No Action amoxicillin-pot clavulanate 875-125 mg tablet 1 tab PO BID Qty: 14 0RF hydrocodone-acetaminophen 5-325 mg tablet 1 tab PO Q6H MDD 4 PRN (Reason: pain) Qty: 20 0RF hydrocodone-acetaminophen 5-325 mg tablet 1 tab PO Q6H MDD 4 PRN (Reason: pain) Qty: 20 0RF acetaminophen-codeine 300-30 mg tablet 2 tab PO Q8H MDD 6 PRN (Reason: pain) Qty: 20 0RF lidocaine [Lidoderm] 5 % adhesive patch,medicated 2 patch topical QDAY PRN (Reason: pain) Qty: 30 0RF Rx Instructions: leave on most painful area for up to 12 hrs Referrals: No Primary/Family,Physician [Primary Care Provider] - In 1 week Problem List Clinical Impression: Abdominal pain, Chronic pelvic pain in female Patient/Caregiver Discharge Instructions Education Materials: Abdominal Pain Print Language: Indian Stand Alone Forms: Alejandra Award Info., Patient Portal Info Letter PA/GOLF BALL INSPECTOR Supervising Physician PA/GOLF BALL INSPECTOR Supervising Physician: Dr. Horta
--- NOTE | 2025-07-04 14:22 | XR_ITS ---
EXAMINATION: PA lateral chest 2 views TECHNIQUE: Upright PA lateral chest 2 views Date and time: July 04, 2025, 1441 hours, comparison July 12, 2023 INDICATIONS: Shortness of breath today, diagnosis COPD FINDINGS: Significant hyperexpansion Mild to moderate enlargement left ventricle No lobar pneumonia or pulmonary edema Prominent osteopenia. Kyphosis dorsal spine secondary to osteoporotic chronic wedging mid dorsal vertebral bodies Diffuse advanced thoracic degenerative disc disease Partial visualization transpedicular lumbar fusion IMPRESSION: COPD with significant hyperexpansion Mild to moderate enlargement left ventricle No pneumonia or pulmonary edema
--- NOTE | 2025-07-04 14:24 | XR_ITS ---
Examination: CT abdomen with intravenous contrast CT pelvis with intravenous contrast 2-D coronal reconstructions 2-D sagittal reconstructions Date and time of exam: July 04, 2025, 1619 hours INDICATIONS: Onset left lower abdominal pain today Comparison March 11, 2025. CTDI: vol (mGy) 8.14 DLP: (mGycm) 389 Technique: Multiple axial sections of the abdomen and pelvis have been obtained. 64 slice high-resolution scanner used. 3 mm axial sections have been obtained, post intravenous injection of 60 cc [id number] 2-D sagittal, coronal reconstructions obtained. Low dose protocols were performed. One or more of the following dose reduction techniques were used; automated exposure control, adjustment of the mA and/or KV according to patient size, use of iterative reconstruction technique. Findings: Mild enlargement cardiac contour No visualized liver or splenic lesion Cholelithiasis gallbladder wall does not appear thickened No pancreatic or adrenal mass No renal or ureteral calculi, no hydronephrosis Lumbar orthopedic hardware generates artifact No bowel obstruction Hip arthroplasties generate artifact in the pelvis No pericecal inflammatory change No pelvic mass Severe osteopenia with transpedicular lumbar fusion L2-S1 with satisfactory alignment Bilateral hip hemiarthroplasties with satisfactory alignment IMPRESSION: Cholelithiasis, negative for cholecystitis No renal or ureteral calculi, no hydronephrosis No CT findings of appendicitis or bowel obstruction Detail in the pelvis is significantly reduced secondary to the hemiarthroplasties, consider pelvic sonography follow-up as clinically warranted
[2025-07-04 14:52] LABS: Basophils # (Auto) 0.1 Thou/mm3 (0.0-0.2); Basophils % (Auto) 1 % (0-2.5); Eosinophils # (Auto) 0.2 Thou/mm3 (0.0-0.5); Eosinophils % (Auto) 3 % (0-10); Hematocrit 37.6 % (36.0-46.0); Hemoglobin 12.4 g/dL (12.0-16.0); Immature Granulocytes Auto 0.02 Thou/mm3 (0.00-0.00); Lymphocytes # (Auto) 2.1 Thou/mm3 (1.0-4.8); Lymphocytes % (Auto) 34 % (10-50); Mean Corpuscular HGB Conc 33.0 g/dl (31.0-37.0); Mean Corpuscular Hemoglobin 30.2 pg (25.0-35.0); Mean Corpuscular Volume 92 fL (80-100); Monocytes # (Auto) 0.4 Thou/mm3 (0.0-0.8); Monocytes % (Auto) 7 % (0-12); Neutrophils # (Auto) 3.5 Thou/mm3 (1.8-7.7); Neutrophils % (Auto) 55 % (37-80); Nucleated Red Blood Cell # 0.00 Thou/mm3 (0.00-0.00); Nucleated Red Blood Cell % 0 /100 WBC (0); Platelet Count 227 Thou/mm3 (140-440); RDW Standard Deviation 48.2 fL (36.4-46.3); Red Blood Count 4.11 Miln/mm3 (4.00-5.20); White Blood Count 6.3 Thou/mm3 (3.6-11.0)
[2025-07-04 15:02] LABS: Alanine Aminotransferase 14 U/L (10-49); Albumin, Serum 4.6 gm/dL (3.4-4.8); Albumin/Globulin Ratio 2.3 (1.2-2.2); Alkaline Phosphatase 56 U/L (46-116); Anion Gap 9 (7-16); Aspartate Amino Transferase 16 U/L (0-34); BUN/Creatinine Ratio 16 Ratio (12-20); Bilirubin,Total 0.3 mg/dL (0.3-1.2); Blood Urea Nitrogen 11 mg/dL (9-23); Calcium 9.3 mg/dL (8.3-10.6); Calcium (Corrected) 9.3 mg/dL (8.5-10.1); Carbon Dioxide 24.2 mMol/L (20.0-31.0); Chloride 109 mMol/L (98-107); Creatinine (Component) 0.7 mg/dL (0.6-1.3); Globulin 2.0 gm/dL (2.3-3.5); Glucose 102 mg/dL (74-106); Osmolality,Calculated 282 (275-295); Potassium 4.0 mMol/L (3.4-5.1); Sodium 142 mMol/L (136-145); Total Protein 6.6 gm/dL (5.7-8.2); eGFR > 60 See Note
[2025-07-04 15:25] LABS: Collection Type, Urine Clean Catch; Squamous Epithelial Cell,Urine 0 /hpf (0-5)
[2025-07-04 15:38] LABS: Bilirubin,Urine Negative (Negative); Blood,Urine Negative (Negative); Clarity,Urine Clear (Clear/Hazy); Color,Urine Colorless (Lt Yel-Yel); Culture Indicated,Urine Not Indicated; Glucose, Urine Negative (Negative); Ketones,Urine Negative (Negative); Leukocyte Esterase,Urine Negative (Negative); Nitrite,Urine Negative (Negative); PH,Urine 6.0 (5.0-7.0); Protein,Urine Negative (Neg - Trace); RBC,Urine < 1 /hpf (0-3); Specific Gravity,Urine 1.007 (1.001-1.035); Urobilinogen,Urine Negative mg/dL (0.0-1.0); WBC,Urine < 1 /hpf (0-5)
[2025-07-04] MEDS: HYDROcodone/APAP 5/325 TABLET 1 TAB PO (15:46)
[2025-07-04] MEDS: KETOROLAC INJ 30 MG/ML VIAL IM (15:47)
[2025-07-04 15:54] VITALS: BP 158/82; PULSE 69; RESP 18; TEMP 36.6; O2SAT 97
--- NOTE | 2025-07-04 17:48 | XR_ITS ---
Examination: Pelvic ultrasound, transabdominal, complete Technique: Transabdominal ultrasound of the pelvis performed using grayscale imaging Date and time of exam: July 04, 2025, 1757 hours INDICATIONS: Left lower abdomen pain 6 months worse the last week FINDINGS: Absent uterus Ovaries not visualized IMPRESSION: No pelvic mass No free fluid in the pelvis
[2025-07-04 18:44] VITALS: BP 155/75; PULSE 77; RESP 19; TEMP 37.1; O2SAT 97
== END 2025-07-04 18:51 | disposition home or self-care (01) ==
PROVIDERS: Physician Assistant; Emergency Provider Emergency Medicine
DX: R10.20 Pelvic and perineal pain unspecified side (principal); G89.29 Other chronic pain
CPT/HCPCS: 36415; 71046; 74177; 76856; 80053; 81001; 85025; 96372; 99283; A4649; J1885; Q9967; A9270

== ENCOUNTER 2025-07-07 17:54 | Emergency (ER) | payer MEDICARE, SELFPAY ==
[2025-07-07 18:41] VITALS: BP 167/93; PULSE 98; RESP 18; TEMP 37.7; O2SAT 97; BMI 24.7
--- NOTE | 2025-07-07 18:49 | XR_ITS ---
Examination: Transvaginal ultrasound of the pelvis, complete Technique: Transvaginal sonographic images pelvis performed using etienne scale imaging Exam date and time: July 07, 2025, 1917 hours INDICATIONS: Pelvic pain beginning 6 months ago, hysterectomy history FINDINGS: Absent uterus absent ovaries No free fluid in the pelvis No pelvic mass IMPRESSION: No free fluid in the pelvis, no pelvic mass.
--- NOTE | 2025-07-07 18:50 | EDRME_ITS ---
Rapid Medical Screening Exam [facility] Arrival date/time: 07/07/25 17:54 80F with history of L hip replacement presents to ED with 1 week of worsening LLQ/pelvic pain. Patient denies N/V and dysuria. Patient was here several days ago for similar complaint with no diagnosis. Patient has been having this pain intermittently for the past [address] is noted to be unremarkable due to many artifacts from hip replacement. Chief Complaint: Abdominal Pain Vital signs: Vital Signs Temperature 99.8 F 07/07/25 18:41 Pulse Rate 98 07/07/25 18:41 Respiratory Rate 18 07/07/25 18:41 Blood Pressure 167/93 H 07/07/25 18:41 Pulse Oximetry (%) 97 07/07/25 18:41 Oxygen Delivery Method Room Air 07/07/25 18:41
[2025-07-07 19:46] LABS: Collection Type, Urine Clean Catch
[2025-07-07 19:59] LABS: Lactate (Lactic Acid) 0.9 mMol/L (0.4-2.0)
[2025-07-07 20:03] LABS: Basophils # (Auto) 0.1 Thou/mm3 (0.0-0.2); Basophils % (Auto) 1 % (0-2.5); Eosinophils # (Auto) 0.2 Thou/mm3 (0.0-0.5); Eosinophils % (Auto) 2 % (0-10); Hematocrit 39.9 % (36.0-46.0); Hemoglobin 13.0 g/dL (12.0-16.0); Immature Granulocytes Auto 0.01 Thou/mm3 (0.00-0.00); Lymphocytes # (Auto) 2.1 Thou/mm3 (1.0-4.8); Lymphocytes % (Auto) 29 % (10-50); Mean Corpuscular HGB Conc 32.6 g/dl (31.0-37.0); Mean Corpuscular Hemoglobin 29.7 pg (25.0-35.0); Mean Corpuscular Volume 91 fL (80-100); Monocytes # (Auto) 0.5 Thou/mm3 (0.0-0.8); Monocytes % (Auto) 7 % (0-12); Neutrophils # (Auto) 4.2 Thou/mm3 (1.8-7.7); Neutrophils % (Auto) 60 % (37-80); Nucleated Red Blood Cell # 0.00 Thou/mm3 (0.00-0.00); Nucleated Red Blood Cell % 0 /100 WBC (0); Platelet Count 241 Thou/mm3 (140-440); RDW Standard Deviation 48.2 fL (36.4-46.3); Red Blood Count 4.37 Miln/mm3 (4.00-5.20); White Blood Count 7.0 Thou/mm3 (3.6-11.0)
[2025-07-07 20:11] LABS: Bacteria,Urine Rare; Bilirubin,Urine Negative (Negative); Blood,Urine Negative (Negative); Clarity,Urine Clear (Clear/Hazy); Color,Urine Colorless (Lt Yel-Yel); Culture Indicated,Urine Not Indicated; Glucose, Urine Negative (Negative); Ketones,Urine Negative (Negative); Leukocyte Esterase,Urine Positive (Negative); Nitrite,Urine Negative (Negative); PH,Urine 6.0 (5.0-7.0); Protein,Urine Negative (Neg - Trace); RBC,Urine 2 /hpf (0-3); Specific Gravity,Urine 1.009 (1.001-1.035); Squamous Epithelial Cell,Urine < 1 /hpf (0-5); Urobilinogen,Urine Negative mg/dL (0.0-1.0); WBC,Urine 3 /hpf (0-5)
[2025-07-07 20:29] LABS: Alanine Aminotransferase 14 U/L (10-49); Albumin, Serum 5.1 gm/dL (3.4-4.8); Albumin/Globulin Ratio 2.4 (1.2-2.2); Alkaline Phosphatase 56 U/L (46-116); Anion Gap 10 (7-16); Aspartate Amino Transferase 19 U/L (0-34); BUN/Creatinine Ratio 10 Ratio (12-20); Bilirubin,Total 0.5 mg/dL (0.3-1.2); Blood Urea Nitrogen 8 mg/dL (9-23); Calcium 9.6 mg/dL (8.3-10.6); Calcium (Corrected) 9.6 mg/dL (8.5-10.1); Carbon Dioxide 25.6 mMol/L (20.0-31.0); Chloride 106 mMol/L (98-107); Creatinine (Component) 0.8 mg/dL (0.6-1.3); Estimated Creatinine Clearance 50.2 mL/min (>60); Globulin 2.1 gm/dL (2.3-3.5); Glucose 112 mg/dL (74-106); Osmolality,Calculated 282 (275-295); Potassium 3.7 mMol/L (3.4-5.1); Procalcitonin 0.06 ng/ml (0.0-0.49); Sodium 142 mMol/L (136-145); Total Protein 7.2 gm/dL (5.7-8.2); eGFR > 60 See Note
--- NOTE | 2025-07-07 22:34 | XR_ITS ---
EXAMINATION: AP pelvis single view TECHNIQUE: 1. AP portable pelvis single view Date and time: July 07, 2025 1037 hours INDICATIONS: Left lower abdomen pelvic pain onset today. FINDINGS: Bilateral total hip hip hemiarthroplasties. Satisfactory alignment No loosening of the prosthetic components Transpedicular lower lumbar fusion screws Pelvis appears intact Surgical clips central upper pelvis and right groin IMPRESSION: Bilateral hip arthroplasties with satisfactory alignment No acute fracture
--- NOTE | 2025-07-07 22:36 | PD.EDABDPN ---
ED Abdominal Pain RME/HPI General Chief Complaint: Abdominal Pain Stated complaint: LLQ ABD PAIN Arrival date/time: 07/07/25 17:54 RME / HPI RME / HPI narrative: 07/07/25 17:54 80F with history of L hip replacement presents to ED with 1 week of worsening LLQ/pelvic pain. Patient denies N/V and dysuria. Patient was here several days ago for similar complaint with no diagnosis. Patient has been having this pain intermittently for the past [address] is noted to be unremarkable due to many artifacts from hip replacement. DR. MIMS MAIN ED EVALUATION: 80 y/o female with SHx of left hip replacement presents to ED c/o worsening, 07/03, left pelvic pain x 1 week. Denies any recent injury, trauma, or MVA over the last week. Related Data Previous Rx's ?Medication ?Instructions ?Recorded amoxicillin 875 mg-potassium 1 tab PO BID #14 tabs 02/02/24 clavulanate 125 mg tablet hydrocodone 5 mg-acetaminophen 325 1 tab PO Q6H PRN pain #20 tabs 02/10/24 mg tablet hydrocodone 5 mg-acetaminophen 325 1 tab PO Q6H PRN pain #20 tabs 02/10/24 mg tablet acetaminophen 300 mg-codeine 30 mg 2 tab PO Q8H PRN pain #20 tabs 03/11/25 tablet lidocaine 5 % topical patch 2 patch topical QDAY PRN pain #30 03/11/25 (Lidoderm) ea hydrocodone 5 mg-acetaminophen 325 1 tab PO Q6H PRN pain #20 tabs 07/07/25 mg tablet Allergies Allergy/AdvReac Type Severity Reaction Status Date / Time adhesive tape Allergy Verified 07/07/25 18:09 Review of Systems Review of Systems Systems Reviewed: All systems reviewed, normal except as documented Past Medical History Past Medical History CARDIAC: Positive Hypertension RESPIRATORY: Positive Chronic Obstructive Pulmonary Disease (COPD), Asthma (COPD) and Pulmonary Edema GASTROINTESTINAL: Positive Colorectal Cancer and Irritable Bowel MUSCULOSKELETAL: Positive Arthritis, Scoliosis, Carpal Tunnel Syndrome (LEFT WRIST), Fractures and Degenerative Joint Disease ENT: Positive Cataracts (BILATERAL) ENDOCRINE: Positive Hypoglycemia PSYCHO/SOCIAL: Positive Depression OTHER HISTORY: Positive Colorectal Cancer and Ovarian Cancer Surgical History SURGICAL: Positive Oral Surgery, Tonsillectomy, Abdominal Surgery, Bowel Surgery (6 INCHES LOWER BOWEL RESECTION), Hysterectomy and Tubal Ligation Social History SMOKING STATUS: Current every day smoker ED Exam Narrative Physical exam: Generally patient is alert and in no obvious distress, heart regular rate and rhythm, lungs clear to auscultation equal bilaterally, abdomen soft bowel sounds present nondistended nontender, external pelvic exam showed the patient to have tenderness to the left pelvic region. Course Quality Measures none Orders Category Date Time Status US transvaginal Stat Exams 07/07/25 18:49 Completed XR pelvis 1-2V Stat Exams 07/07/25 22:34 Taken CBC Stat Lab 07/07/25 19:41 Completed CMP [Comprehensive Metabolic Panel] Stat Lab 07/07/25 19:41 Completed Lactate (Lactic Acid) Stat Lab 07/07/25 19:41 Completed Procalcitonin Stat Lab 07/07/25 19:41 Completed Urinalysis, C/S if Indicated Stat Lab 07/07/25 19:40 Completed Morphine* Inj Med 07/07/25 22:34 Discontinued 5 mg IM X1 ONE Vital Signs Vital signs: Vital Signs Temperature 99.8 F 07/07/25 18:41 Pulse Rate 98 07/07/25 18:41 Respiratory Rate 18 07/07/25 18:41 Blood Pressure 167/93 H 07/07/25 18:41 Pulse Oximetry (%) 97 07/07/25 18:41 Oxygen Delivery Method Room Air 07/07/25 18:41 Abdominal Pain MDM MDM Narrative MDM Narrative:: Scribe Attestation: I, Farideh Jones am scribing for and in the presence of Dr. Mims. Provider Notation: Although this document has been carefully reviewed, there may still be some phonetic and other typographical errors. These errors are purely grammatical due to imperfections in the software program and should not be construed in any way to compromise the substance of the patient's medical care during this visit. Urine is not infected. Lab work is unremarkable. I interpreted all labs. Pelvic ultrasound was unremarkable with evidence for a hysterectomy and bilateral oophorectomy. CT scan done of the abdomen and pelvis 4 days ago with IV contrast showed no evidence for kidney stone or diverticular disease. No fracture. X-ray of the pelvis tonight showed no fracture with bilateral total hips to be in place. Patient received morphine 5 mg IM. I believe the patient's pain to the left hemipelvis to be most likely musculoskeletal due to the fact that it started with a fall out of bed in February of this year. Patient data External records reviewed:: [facility] previous records (Reviewed prior ED records from 07/04/25. Patient was seen for Abdominal pain.) Clinical information provided by:: patient Social determinants that could affect healthcare access:: none Patient has the following chronic illnesses:: Hypertension, Chronic Obstructive Pulmonary Disease (COPD), Asthma, Pulmonary Edema, Colorectal Cancer, Irritable Bowel, Arthritis, Scoliosis, Carpal Tunnel Syndrome, Degenerative Joint Disease, Cataracts, Hypoglycemia, Depression, Colorectal Cancer and Ovarian Cancer How is presenting disease/condition affected by chronic disease/condition?: exacerbated by Evaluation data The following diagnostics were reviewed and interpreted by me:: lab results and radiology exam(s) Lab and/or radiology exams considered but not ordered:: None Interpretation Summary: RADIOLOGY Transvaginal US: FINDINGS: Absent uterus absent ovaries No free fluid in the pelvis No pelvic mass IMPRESSION: No free fluid in the pelvis, no pelvic mass. Pelvis X-Ray: Pending official radiology report. Medications / Prescriptions Medications or Prescriptions considered but not ordered:: None Medication administrations:: Medication Administration History Discontinued Medications Morphine Sulfate (Morphine Sulf Inj 4 Mg/Ml Vial) 5 mg IM X1 ONE Stop: 07/07/25 22:35 Last Admin: 07/07/25 22:58 Dose: 5 mg Documented By: SF See above if any Consultations Consultation(s) initiated? (list below): No Diagnosis Differential diagnosis abdominal pain: abdominal pain, calculus of kidney, gastroenteritis, small bowel obstruction and other (Left hip fracture, Femoral fracture, ) Most likely diagnosis given after review of the tests above:: None Admission Indicated Admission indicated?: not indicated Explain why admission is indicated or not indicated:: Patient does not meet admission criteria Admission Request Was there a request for admission?: No Disposition Plan Disposition Plan: Discharge Discharge Attestation Discharge Attestation: The patient and all family members were given an opportunity to ask questions and understood the discharge instructions. Discharge instructions specifically effects, indications for sooner follow up or return to the emergency department, and the expected course of current diagnosis. Patient condition: Stable Discharge Plan Plan Patient Disposition: HOME (Self Care) Prescriptions/Referrals Prescriptions/Med Rec: New hydrocodone-acetaminophen 5-325 mg tablet 1 tab PO Q6H MDD 4 PRN (Reason: pain) Qty: 20 0RF No Action amoxicillin-pot clavulanate 875-125 mg tablet 1 tab PO BID Qty: 14 0RF hydrocodone-acetaminophen 5-325 mg tablet 1 tab PO Q6H MDD 4 PRN (Reason: pain) Qty: 20 0RF hydrocodone-acetaminophen 5-325 mg tablet 1 tab PO Q6H MDD 4 PRN (Reason: pain) Qty: 20 0RF acetaminophen-codeine 300-30 mg tablet 2 tab PO Q8H MDD 6 PRN (Reason: pain) Qty: 20 0RF lidocaine [Lidoderm] 5 % adhesive patch,medicated 2 patch topical QDAY PRN (Reason: pain) Qty: 30 0RF Rx Instructions: leave on most painful area for up to 12 hrs Referrals: No Primary/Family,Physician [Primary Care Provider] - In 1 week Problem List Clinical Impression: Pelvic pain, Musculoskeletal pain Patient/Caregiver Discharge Instructions Additional Instructions: I believe this to be musculoskeletal pain possibly caused by an old left-sided pelvic fracture from fall out of bed 4 months ago. Print Language: Taiwanese Stand Alone Forms: Alejandra Award Info., Patient Portal Info Letter
[2025-07-07] MEDS: MORPHINE SULF INJ 4 MG/ML VIAL 5 MG IM (22:58)
== END 2025-07-07 23:26 | disposition home or self-care (01) ==
PROVIDERS: Physician Assistant; Emergency Provider Emergency Medicine
DX: R10.22 Pelvic and perineal pain left side (principal)
CPT/HCPCS: 36415; 72170; 76830; 80053; 81001; 83605; 84145; 85025; 96372; 99283; J2270

== ENCOUNTER → 2025-08-31 | Outpatient (CLI) | payer MEDICARE, SELFPAY ==
--- NOTE | 2025-08-31 13:30 | XR_ITS ---
Examination: MRI left hip without intravenous contrast. Date and time of exam August 31, 2025 1407 hours INDICATIONS: Chronic left hip pain, patient fell February 24, 2025 with injury of the left hip, thigh pain joint clicking stiffness Technique: Multiple MRI images of the left hip have been obtained T1 weighted coronal sections, TR 500, TE 12 Proton density coronal fat saturated images, TR 3000, TE 71 T2-weighted coronal images, 5850, TE 104 T1-weighted axial images, TR 521, TE 12 T2-weighted axial fat suppressed images, TR 5730, TE 103. Findings: The patient's hip arthroplasty generates severe magnetic susceptibility artifact which obliterates hip detail Bones of the pelvis grossly intact Urinary bladder intact No free fluid in the pelvis IMPRESSION: Given the bilateral hip arthroplasties, recommend CT scan pelvis and follow-up to best assess for fractures or loosening of the prosthetic hip components
== END | disposition home or self-care (01) ==
LOC: SMRI 13:10
PROVIDERS: PCP Internal Medicine; Referring Provider Internal Medicine; Visit Provider Internal Medicine
DX: G89.29 Other chronic pain (principal); M25.552 Pain in left hip; S79.912S Unspecified injury of left hip, sequela; W19.XXXS Unspecified fall, sequela
CPT/HCPCS: 73721

== ENCOUNTER 2025-09-01 13:04 | Outpatient (AMB) | payer MEDICARE, SELFPAY ==
[2025-09-01 13:30] VITALS: BP 135/75; PULSE 101; RESP 18; TEMP 36.3; O2SAT 94; BMI 23.3
--- NOTE | 2025-09-01 13:30 | ORTHONT_ITS ---
Vital signs 09/01/25 13:30 Height 1.65 m Height Method Stated Weight 63.503 kg Weight Measurement Method Standing Scale BMI 23.3 BP 135/75 H Blood Pressure Source Automatic Cuff Blood Pressure Location Left Upper Arm Position Sitting Respiration 18 Pulse 101 H Pulse Source Monitor Temp 97.4 F Temp Source Temporal Artery Scan Pulse Oximetry (%) 94 L Oxygen Delivery Method Room Air Med/Allergies Allergies & Medications Allergies adhesive tape Allergy (Verified 09/01/25 13:31) Medication Reconciliation amlodipine 5 mg-valsartan 160 mg tablet 1 tab PO QDAY 07/20/25 [History Confirmed 09/01/25] celecoxib 200 mg capsule 200 mg PO Q24H 07/20/25 [History Confirmed 09/01/25] hydrocodone 10 mg-acetaminophen 325 mg tablet 1 tab PO Q6H PRN pain 07/20/25 [History Confirmed 09/01/25] oxybutynin chloride 5 mg tablet 5 mg PO QDAY 07/20/25 [History Confirmed 09/01/25] pantoprazole 40 mg tablet,delayed release 40 mg PO QDAY 07/20/25 [History Confirmed 09/01/25] paroxetine HCl 30 mg tablet 30 mg PO QDAY 07/20/25 [History Confirmed 09/01/25] pramipexole 0.25 mg tablet 0.25 mg PO BID 07/20/25 [History Confirmed 09/01/25] naproxen 500 mg tablet 500 mg PO BID #60 tabs 09/01/25 [Rx] Exam Exam Patient is in no acute distress and is cooperative with the examination today. Breathing is nonlabored. In no respiratory distress. Patient has no paraspinal tenderness. Spinal deformity cannot be appreciated. Bilateral extremities were evaluated and demonstrates sensation intact to light touch. Palpable pedal pulses are present. No significant edema is present. Bilateral knees were examined and the patient has full strength and range of motion.. The right hip was examined. Patient was able to flex to 90 degrees, adduct to 30 degrees, abduct to 40 degrees, internally rotate to 20 degrees, and externally rotate to 20 degrees. Patient has a negative logroll. Stinchfield is negative. The patient is nontender diffusely to touch. The left hip was examined. Patient was able to flex to 90 degrees, adduct to 30 degrees, abduct to 40 degrees, internally rotate to 20 degrees, and externally rotate to 20 degrees. Patient has a negative logroll. The stinchfield is negative. PHYSICAL EXAM Musculoskeletal: Gait: Patient exhibits a limp when walking, which has been present since the hip replacement. Left hip: Tenderness noted on palpation, consistent with trochanteric bursitis. No pain on palpation of other areas. Assessment and Plan Problem List (1) Trochanteric bursitis: Status: Acute Plan: ASSESSMENT AND PLAN 1. Trochanteric bursitis: The condition is likely due to inflammation from a fall in February 2025. Significant pain is reported in the left hip area, which is pinpoint tender upon examination. Hip x-rays from a month ago show no loose components, and the hip replacements appear stable. An injection will be administered today to alleviate the inflammation. Naproxen 500 mg twice daily as needed for pain will be prescribed. Physical therapy was offered but declined at this time. The patient was informed that the injection should provide significant relief within two days and that multiple injections might be necessary if the pain persists. The patient was reassured that this condition is not surgical and is related to soft tissue inflammation likely exacerbated by the fall. Recommend hip bursa cortisone injection as patient would like to proceed with conservative treatment at this time. The risks and benefits of the procedure were reviewed with the patient and patient gave verbal consent to continue with the procedure. Procedure: performed by Dr. Hanson Using sterile technique the left hip bursa was thoroughly prepped with alcohol prep, and approximately 1 cc of Depo-Medrol 80 and 4 cc of 0.2% ropivacaine was injected without resistance. The patient tolerated the procedure well. Advanced Care Planning Discussion Advance care planning discussed with:: patient Office Procedures GNS Level of Care Nursing/Assessment Patient Status: Initial/New Patient Nursing Assessment/Reassesment: Medication Reconciliation, Update PMH in EMR and Vital Signs Coordination of Care: Complex Care and Chronic Disease 1-5, Education Complex Pt/Fam, Consent,records obtained, informed consent, 1 Ins Authorization, Lab and Imaging orders, Results/Orders obtained and Staff clarify orders New Patient Charge New Patient Point Assignment: [id number] New Patient Point Charge: TRANSPLANT CASE MANAGER Level 4 (0915-8601) Surgical Proc/IM SQ injection Minor Surgical Procedure: Yes (LEFT HIP INJECTION) Medication Given Medication Given Medication Given: Yes Documented Dose Given: 1 Route: Infiitration Medication Given Medication Given Medication Given: Yes Documented Dose Given: 4 Route: Infiitration Office Meds methylprednisolone acetate 80 mg/mL suspension for injection Performing Provider: Suhas Hanson MD Performing Location: [facility] Administered by: Suhas Hanson MD on 09/01/25 13:45 Dose Route Admin Location Dispensed Lot Number Expiration Date Pack age [facility] [employer] 80 mg intra-articular 1 mL [id number] 05/23/27 [address]-9 [id number] [employer] ropivacaine (PF) 2 mg/mL (0.2 %) injection solution Performing Provider: Suhas Hanson MD [facility] Administered by: Suhas Hanson MD on 09/01/25 13:45 Dose Route Admin Location Dispensed Lot Number Expiration Date Pack age [facility] Production Designer 20 mL Infiltration 20 mL [id number] 02/20/27 1756-3359-45 [id number] [facility] [place] Intake Visit Data Collection New Patient or Established: New Patient (never been to [facility]) Reason for Visit:: LEFT HIP PAIN Seen by Clinical Staff ONLY (RN/MA): No PCP or OBGYN visit in last 3 months: Yes Hx Now: No Do You Feel Safe at Home: Yes Authorities Contacted: N/A Questionairres Past Medical History Past Medical History Have you ever been diagnosed with any of the following: Neurological Problems Peripheral Neuropathy: Yes Cardiology Problems Congestive Heart Failure: No Hypertension: Yes Respiratory Problems Chronic Obstructive Pulmonary Disease (COPD): Yes Asthma: Yes Pulmonary Edema: Yes Stomache/Intestinal Problems Colorectal Cancer: Yes Irritable Bowel: Yes Genital/Urinary Problems Renal Disease: No Musculoskeletal Problems Arthritis: Yes Scoliosis: Yes Carpal Tunnel Syndrome: Yes Fractures: Yes Degenerative Joint Disease: Yes Head,Eye,Nose,Throat Problems Cataracts: Yes Endocrine Problems Diabetes Mellitus Type 1: No Diabetes Mellitus Type 2: No Hypoglycemia: Yes Blood Problems Sickle Cell Disease: No Psychologic Problems Depression: Yes Anxiety: Yes Other Problems Hospitalization: Yes Falls: Yes Blood Transfusions: No Anesthesia Reactions: No Chemotherapy: No Cancer: Yes Ovarian Cancer: Yes Surgical History Total Hip Replacement: Yes (BILATERAL) Hysterectomy: Yes Subjective Visit Visit for: new patient and hip (LEFT) Immunization / Flu Flu Vaccine in the Last 12 Months: No Flu Vaccine Exclusion Criteria: Already Received History of Present Illness Chief complaint: LEFT HIP PAIN Date of injury / onset of symptoms: 02/2025 Date of 1st surgery (if applicable): [id number] HISTORY OF PRESENT ILLNESS I, Suhas Hanson, have obtained verbal consent from the patient, to be recorded during this encounter which may include, but not limited to, medical history, examination, treatment plans, and relevant health information.? Patient was informed that recording will be read and reviewed by myself before inclusion in the medical chart. The patient presents for evaluation of left hip pain. She has a history of 2 hip replacements, performed approximately 7 years ago in [place]. The incisions were made on the side. She experienced a fall on 02/2025, which resulted in immediate pelvic bone pain. This incident led to an alteration in her gait, causing her to walk unusually. She is uncertain if she dislocated her hip during the fall or if the subsequent pain was a direct result of the incident. She sought emergency care following the fall, where no significant findings were reported. Initially, she experienced groin pain. Currently, she reports pain on the side of her hip, which is exacerbated by walking and standing. She also experiences discomfort when lying on her side, particularly at the onset of sleep. She has a persistent limp since her hip replacement surgery, but the current pain is a new symptom. She has not attempted any anti-inflammatory treatments and reports no renal or gastrointestinal issues. She is currently taking [place] for pain management and continues to use Celebrex. PAST SURGICAL HISTORY: Two hip replacements approximately 7 years ago. Back fusion with screws. Personal History Occupation: RETIRED Pain Pain level (0-10): 5 Pain duration: ON AND OFF Pain location: groin, inside (medial), outside (lateral), anterior and posterior Pain quality: sharp, dull, aching and tingling Pain timing: night, increases with activity and stairs Associated signs & symptoms: weakness Ambulatory data Ambulatory device: none Treatments Improvement with previous injections: No Improvement with PT: No Improvement with NSAIDS: no Review of Systems Review of Systems: All systems negative unless otherwise noted in HPI.
== END 2025-09-01 13:52 | disposition home or self-care (01) ==
LOC: HODSRG 13:04
PROVIDERS: Supervising Provider Orthopaedic Surgery Adult Reconstructive Orthopaedic Surgery; Visit Provider Orthopaedic Surgery Adult Reconstructive Orthopaedic Surgery
DX: M70.62 Trochanteric bursitis, left hip (principal); M25.552 Pain in left hip; Z96.643 Presence of artificial hip joint, bilateral; I10 Essential (primary) hypertension
CPT/HCPCS: 20610; 99204; J1010; J2795; G0463

== ENCOUNTER 2025-09-10 08:31 | Outpatient (AMB) | payer MEDICARE, SELFPAY ==
[2025-09-10 08:45] VITALS: BP 145/78; PULSE 92; RESP 18; TEMP 36.3; O2SAT 96; BMI 23.1
--- NOTE | 2025-09-10 08:45 | ORTHONT_ITS ---
Vital signs 09/10/25 08:45 Height 1.65 m Height Method Stated Weight 62.851 kg Weight Measurement Method Standing Scale BMI 23.1 BP 145/78 H Blood Pressure Source Automatic Cuff Blood Pressure Location Left Upper Arm Position Sitting Respiration 18 Pulse 92 Pulse Source Monitor Temp 97.4 F Temp Source Temporal Artery Scan Pulse Oximetry (%) 96 Oxygen Delivery Method Room Air Med/Allergies Allergies & Medications Allergies adhesive tape Allergy (Verified 09/10/25 08:45) Medication Reconciliation amlodipine 5 mg-valsartan 160 mg tablet 1 tab PO QDAY 07/20/25 [History Confirmed 09/10/25] celecoxib 200 mg capsule 200 mg PO Q24H 07/20/25 [History Confirmed 09/10/25] hydrocodone 10 mg-acetaminophen 325 mg tablet 1 tab PO Q6H PRN pain 07/20/25 [History Confirmed 09/10/25] oxybutynin chloride 5 mg tablet 5 mg PO QDAY 07/20/25 [History Confirmed 09/10/25] pantoprazole 40 mg tablet,delayed release 40 mg PO QDAY 07/20/25 [History Confirmed 09/10/25] paroxetine HCl 30 mg tablet 30 mg PO QDAY 07/20/25 [History Confirmed 09/10/25] pramipexole 0.25 mg tablet 0.25 mg PO BID 07/20/25 [History Confirmed 09/10/25] naproxen 500 mg tablet 500 mg PO BID #60 tabs 09/01/25 [Rx Confirmed 09/10/25] Exam Exam Patient is in no acute distress and is cooperative with the examination today. Breathing is nonlabored. In no respiratory distress. Patient has no paraspinal tenderness. Spinal deformity cannot be appreciated. Bilateral extremities were evaluated and demonstrates sensation intact to light touch. Palpable pedal pulses are present. No significant edema is present. Bilateral knees were examined and the patient has full strength and range of motion.. The right hip was examined. Patient was able to flex to 90 degrees, adduct to 30 degrees, abduct to 40 degrees, internally rotate to 20 degrees, and externally rotate to 20 degrees. Patient has a negative logroll. Stinchfield is negative. The patient is nontender diffusely to touch. The left hip was examined. Patient was able to flex to 90 degrees, adduct to 30 degrees, abduct to 40 degrees, internally rotate to 20 degrees, and externally rotate to 20 degrees. Patient has a negative logroll. The stinchfield is negative. PHYSICAL EXAM Musculoskeletal: Gait: Patient exhibits a limp when walking, which has been present since the hip replacement. Left hip: Tenderness noted on palpation, consistent with trochanteric bursitis. No pain on palpation of other areas. Assessment and Plan Problem List (1) Trochanteric bursitis: Status: Acute Plan: ASSESSMENT AND PLAN 1. Trochanteric bursitis: The condition is likely due to inflammation from a fall in February 2025. Significant pain is reported in the left hip area, which is pinpoint tender upon examination. Hip x-rays from a month ago show no loose components, and the hip replacements appear stable. She reports minimal leaf of the injection. We discussed that the pain is likely coming back and she can pursue getting this checked if she wants. She will follow-up with us on an as-needed basis Advanced Care Planning Discussion Advance care planning discussed with:: patient Office Procedures GNS Level of Care Nursing/Assessment Patient Status: Established Patient Nursing Assessment/Reassesment: Medication Reconciliation, Update PMH in EMR and Vital Signs Coordination of Care: Complex Care and Chronic Disease 1-5, Education Complex Pt/Fam, Consent,records obtained, informed consent, Results/Orders obtained and Staff clarify orders Established Patient Charge Established Patient Point Assignment: 95 Established Patient Point Charge: EP Level 3 (80-115) MA Intake Visit Data Collection New Patient or Established: Established Patient (seen at [facility] within 3 years) Reason for Visit:: HIP PAIN INJ DIDNT WORK Seen by Clinical Staff ONLY (RN/MA): No PCP or OBGYN visit in last 3 months: Yes Hx Now: No Do You Feel Safe at Home: Yes Authorities Contacted: N/A Questionairres Past Medical History Past Medical History Have you ever been diagnosed with any of the following: Neurological Problems Peripheral Neuropathy: Yes Cardiology Problems Congestive Heart Failure: No Hypertension: Yes Respiratory Problems Chronic Obstructive Pulmonary Disease (COPD): Yes Asthma: Yes Pulmonary Edema: Yes Stomache/Intestinal Problems Colorectal Cancer: Yes Irritable Bowel: Yes Genital/Urinary Problems Renal Disease: No Musculoskeletal Problems Arthritis: Yes Scoliosis: Yes Carpal Tunnel Syndrome: Yes Fractures: Yes Degenerative Joint Disease: Yes Head,Eye,Nose,Throat Problems Cataracts: Yes Endocrine Problems Diabetes Mellitus Type 1: No Diabetes Mellitus Type 2: No Hypoglycemia: Yes Blood Problems Sickle Cell Disease: No Psychologic Problems Depression: Yes Anxiety: Yes Other Problems Hospitalization: Yes Falls: Yes Blood Transfusions: No Anesthesia Reactions: No Chemotherapy: No Cancer: Yes Ovarian Cancer: Yes Surgical History Total Hip Replacement: Yes (BILATERAL) Hysterectomy: Yes Subjective Visit Visit for: follow up visit and hip Immunization / Flu Flu Vaccine in the Last 12 Months: No Flu Vaccine Exclusion Criteria: Already Received History of Present Illness Chief complaint: LEFT HIP PAIN Date of injury / onset of symptoms: 02/2025 Date of 1st surgery (if applicable): [id number] HISTORY OF PRESENT ILLNESS I, Suhas Valentin, have obtained verbal consent from the patient, to be recorded during this encounter which may include, but not limited to, medical history, examination, treatment plans, and relevant health information.? Patient was informed that recording will be read and reviewed by myself before inclusion in the medical chart. The patient presents for evaluation of left hip pain. She has a history of 2 hip replacements, performed approximately 7 years ago in [place]. The incisions were made on the side. She experienced a fall on 02/2025, which resulted in immediate pelvic bone pain. This incident led to an alteration in her gait, causing her to walk unusually. She is uncertain if she dislocated her hip during the fall or if the subsequent pain was a direct result of the incident. She sought emergency care following the fall, where no significant findings were reported. Initially, she experienced groin pain. Currently, she reports pain on the side of her hip, which is exacerbated by walking and standing. She also experiences discomfort when lying on her side, particularly at the onset of sleep. She has a persistent limp since her hip replacement surgery, but the current pain is a new symptom. She has not attempted any anti-inflammatory treatments and reports no renal or gastrointestinal issues. She is currently taking [place] for pain management and continues to use Celebrex. She returns after her hip bursa injection 1 week ago. She reports minimal relief from PAST SURGICAL HISTORY: Two hip replacements approximately 7 years ago. Back fusion with screws. Personal History Occupation: RETIRED Pain Pain level (0-10): 5 Pain duration: ON AND OFF Pain location: groin, inside (medial), outside (lateral), anterior and posterior Pain quality: sharp, dull, aching and tingling Pain timing: night, increases with activity and stairs Associated signs & symptoms: weakness Ambulatory data Ambulatory device: none Treatments Improvement with previous injections: No Improvement with PT: No Improvement with NSAIDS: no Review of Systems Review of Systems: All systems negative unless otherwise noted in HPI.
== END 2025-09-10 09:21 | disposition home or self-care (01) ==
LOC: HODSRG 08:31
PROVIDERS: Supervising Provider Orthopaedic Surgery Adult Reconstructive Orthopaedic Surgery; Visit Provider Orthopaedic Surgery Adult Reconstructive Orthopaedic Surgery
DX: M70.62 Trochanteric bursitis, left hip (principal)
CPT/HCPCS: 99213; G0463